=== PATIENT | female | born 1985 | race Caucasian/White ===

== ENCOUNTER 2024-03-11 05:40 | Emergency (ER) | payer OTHER ==
[~2024-03-11] VITALS: Ht 162.6 cm; Wt 67.8 kg
[2024-03-11 06:10] VITALS: BP 158/94; PULSE 84; RESP 16; TEMP 97.9; O2SAT 97
[2024-03-11 06:43] LABS: APPEARANCE,URINE CLEAR (CLEAR); BILIRUBIN,URINE NEGATIVE (NEGATIVE); BLOOD, URINE 2+ (NEGATIVE); COLOR,URINE YELLOW (YELLOW); LEUKOCYTE ESTERASE ,URINE TRACE (NEGATIVE); NITRITE, URINE NEGATIVE (NEGATIVE); PROTEIN,URINE 1+ (NEGATIVE); UGLUCOSE 3+ (NEGATIVE); UROBILINOGEN,URINE 0.2 EU/dL (0.2 - 1)
[2024-03-11] MEDS: NACL 0.9% 1,000 ML IV SCH (06:45)
[2024-03-11 06:52] LABS: BASOPHILS # (AUTO) 0.1 K/uL (0.00-0.22); BASOPHILS % (AUTO) 0.9 % (0.0-2.0); EOSINOPHILS # (AUTO) 0.1 K/uL (0-0.4); EOSINOPHILS % (AUTO) 1.6 % (0.0-4.0); HEMATOCRIT 31.2 % (36-48); HEMOGLOBIN 10.7 g/dL (12.0-16.0); LYMPHOCYTES # (AUTO) 2.4 K/uL (2.5-16.5); LYMPHOCYTES % (AUTO) 37.5 % (20.5-51.1); MEAN CORPUSCULAR HEMOGLOBIN 26 pg (27-31); MEAN CORPUSCULAR HGB CONC 34 g/dL (33-37); MEAN CORPUSCULAR VOLUME 75.4 fL (80-94); MONOCYTES # (AUTO) 0.6 K/uL (0.8-1.0); MONOCYTES % (AUTO) 9.1 % (1.7-9.3); NEUTROPHILS # (AUTO) 3.2 K/uL (1.8-7.7); NEUTROPHILS % (AUTO) 50.9 % (42.2-75.2); PLATELET COUNT (AUTO) 338 K/uL (140-450); RED BLOOD CELL COUNT(AUTO) 4.13 MIL/uL (4.20-5.40); RED CELL DISTRIBUTION WIDTH 13.6 % (11.6-13.7); WHITE BLOOD COUNT (AUTO) 6.4 K/uL (4.8-10.8)
[2024-03-11 07:00] LABS: CALCIUM 8.8 mg/dL (8.5-10.1); CARBON DIOXIDE 29.9 mmol/L (21-32); CREATININE 0.8 mg/dL (0.6-1.3); POTASSIUM 3.9 mmol/L (3.5-5.1)
[2024-03-11 07:01] LABS: BACTERIA,URINE FEW /HPF (None Seen); RBC,URINE 0-5 /HPF (0-5); SQUAMOUS EPITHELIAL CELL,UR 4-10 (MOD) /LPF (0-3 (FEW)); WBC,URINE 0-5 /HPF (0-5)
[2024-03-11 07:07] LABS: TOTAL BILIRUBIN 0.1 mg/dL (0.0-1.0); TOTAL PROTEIN, SERUM 7.5 g/dL (6.4-8.2)
[2024-03-11] MEDS: KETOROLAC 30 MG/ML VIAL IVP ONE (08:44)
[2024-03-11 09:03] VITALS: RESP 14
[2024-03-11] MEDS ORDERED: POLY17PD72 PO (10:49)
[2024-03-11] MEDS ORDERED: ONDA-188 SL (10:49)
[2024-03-11] MEDS ORDERED: CEPH-588 PO (10:49)
[2024-03-11 11:00] VITALS: BP 129/78; PULSE 88; TEMP 98; O2SAT 98
== END 2024-03-11 11:00 | disposition home or self-care (01) ==
LOC: MED 05:40
DX: N30.00 Acute cystitis without hematuria (principal); R42 Dizziness and giddiness; I77.6 Arteritis, unspecified; R03.0 Elevated blood-pressure reading, without diagnosis of hypertension; E11.9 Type 2 diabetes mellitus without complications; Z79.899 Other long term (current) drug therapy
CPT/HCPCS: 36415; 74177; 80048; 80076; 81001; 81025; 82948; 83690; 85025; 96361; 96374; 99285; J1885; J7030; Q9967

== ENCOUNTER 2024-07-05 15:29 | Emergency (ER) | payer OTHER ==
[~2024-07-05] VITALS: Ht 162.6 cm; Wt 69.4 kg
[~2024-07-05 15:29] MED LIST: CEPH-588 PO; ONDA-188 SL; POLY17PD72 PO
[2024-07-05 15:35] VITALS: BP 143/66; PULSE 95; RESP 15; TEMP 98.7; O2SAT 99
[2024-07-05 16:31] LABS: BASOPHILS # (AUTO) 0.1 K/uL (0.00-0.22); BASOPHILS % (AUTO) 0.7 % (0.0-2.0); EOSINOPHILS # (AUTO) 0.1 K/uL (0-0.4); EOSINOPHILS % (AUTO) 0.7 % (0.0-4.0); HEMATOCRIT 28.9 % (36-48); HEMOGLOBIN 9.7 g/dL (12.0-16.0); LYMPHOCYTES # (AUTO) 1.9 K/uL (2.5-16.5); LYMPHOCYTES % (AUTO) 25.3 % (20.5-51.1); MEAN CORPUSCULAR HEMOGLOBIN 26 pg (27-31); MEAN CORPUSCULAR HGB CONC 34 g/dL (33-37); MEAN CORPUSCULAR VOLUME 76.3 fL (80-94); MONOCYTES # (AUTO) 0.6 K/uL (0.8-1.0); MONOCYTES % (AUTO) 7.7 % (1.7-9.3); NEUTROPHILS # (AUTO) 5.1 K/uL (1.8-7.7); NEUTROPHILS % (AUTO) 65.6 % (42.2-75.2); PLATELET COUNT (AUTO) 373 K/uL (140-450); RED BLOOD CELL COUNT(AUTO) 3.79 MIL/uL (4.20-5.40); RED CELL DISTRIBUTION WIDTH 13.6 % (11.6-13.7); WHITE BLOOD COUNT (AUTO) 7.7 K/uL (4.8-10.8)
[2024-07-05 16:49] LABS: ANION GAP 12.4 (8-16); CALCIUM 8.4 mg/dL (8.5-10.1); CARBON DIOXIDE 26.4 mmol/L (21-32); CREATININE 0.9 mg/dL (0.6-1.3); POTASSIUM 3.8 mmol/L (3.5-5.1)
[2024-07-05] MEDS ORDERED: CEPH-588 PO (17:18)
[2024-07-05] MEDS ORDERED: SULF-59 PO (17:18)
[2024-07-05] MEDS: BACITRACIN OINT 500 UNITS/GM PKT TP ONE (17:39)
== END 2024-07-05 17:38 | disposition home or self-care (01) ==
LOC: MED 15:29
DX: L03.031 Cellulitis of right toe (principal); E11.9 Type 2 diabetes mellitus without complications; I10 Essential (primary) hypertension; Z79.1 Long term (current) use of non-steroidal anti-inflammatories (NSAID); Z79.899 Other long term (current) drug therapy
CPT/HCPCS: 36415; 73630; 80048; 82948; 83605; 85025; 85651; 86140; 99284

== ENCOUNTER 2024-07-22 14:02 | Emergency (ER) | payer OTHER ==
[~2024-07-22] VITALS: Ht 160 cm; Wt 70.5 kg
[~2024-07-22 14:02] MED LIST changes: +SULF-59 PO
[2024-07-22 14:33] VITALS: BP 150/72; PULSE 98; RESP 17; TEMP 97.7; O2SAT 98
[2024-07-22] MEDS: KETOROLAC 30 MG/ML VIAL IM ONE (16:15)
[2024-07-22] MEDS ORDERED: NAPR-1704 PO (16:43)
[2024-07-22 17:20] VITALS: BP 150/72; PULSE 98; RESP 17; TEMP 97.7; O2SAT 98
== END 2024-07-22 17:20 | disposition home or self-care (01) ==
LOC: MED 14:02
DX: L03.031 Cellulitis of right toe (principal); M21.611 Bunion of right foot; E11.9 Type 2 diabetes mellitus without complications; I10 Essential (primary) hypertension; Z79.899 Other long term (current) drug therapy
CPT/HCPCS: 73660; 81025; 96372; 99283; J1885; Q0092